=== PATIENT | female | born 1985 | race American Indian/Alaskan Native ===

== ENCOUNTER 2017-10-09 20:05 | Inpatient (IN) | payer MEDICAID ==
[2017-10-09] MEDS ORDERED: BRETHINE SUB-Q PRN (20:33)
[2017-10-09] MEDS ORDERED: MINERAL OIL PO PRN (20:33)
[2017-10-09] MEDS ORDERED: BRETHINE IVP PRN (20:33)
[2017-10-09] MEDS ORDERED: XYLOCAINE 2% INFILTRATI ONE (20:33)
[2017-10-09] MEDS ORDERED: STADOL IV PRN (20:33)
[2017-10-09] MEDS ORDERED: ePHEDrine SULFATE IV PRN (20:33)
[2017-10-09] MEDS ORDERED: SUBLIMAZE IV PRN (20:33)
[2017-10-09] MEDS ORDERED: CERVIDIL VG ONE (20:33)
[2017-10-09] MEDS ORDERED: PITOCin/NS 20 UNIT/1000ML DRIP 20 UNITS/1,000 ML BAG IV SCH (21:00)
[2017-10-09 23:03] LABS: Hematocrit 32.1 % (30.3-42.9); Hemoglobin 11.1 gm/dl (10.1-14.3); Mean Corpuscular HGB Conc 34 % (30-34); Mean Corpuscular Hemoglobin 30 pg (28-32); Mean Corpuscular Volume 87 fl (79-97); Platelet Count 186 K/mm3 (140-440); Red Blood Count 3.69 M/mm3 (3.65-5.03); Red Cell Distribution Width 15.5 % (13.2-15.2)
[2017-10-10] MEDS ORDERED: PITOCin/NS 30 UNIT/500ML 30 UNITS/500 ML BAG IV SCH (07:00)
--- NOTE | 2017-10-10 08:53 | History and Physical Report ---
History of Present Illness Date of examination: 10/10/17 Date of admission: 10/09/17 20:05 Chief complaint: scheduled induction of labor History of present illness: Pt is a 32 year old female HAMZAH 10/01/17 at 41w2d who presents for induction of labor secondary to postdates. She reports rare contractions and denies vaginal bleeding or leakage of fluid. She has had care at [facility] since 16 wks complicated by obesity, late entry to care , Sickle Cell Trait, Abnormal quad screen with normal NIPT, Elevated one hour diabetes screen but normal three hour glucose tolerance test, genital herpes without lesion or prodrome, and cystitis treated with Macrobid. She is GBS negative. Overnight, the patient received one dose of cervidil. Past History Past Medical History: hematologic disorders (Sickle Cell Trait ), other (Morbid Obesity ) Past Surgical History: no surgical history [employer] History: herpes Family/Genetic History: none Social history: no significant social history - Obstetrical History Expected Date of Delivery: 10/01/17 Actual Gestation: 41 Week(s) 2 Day(s) : 4 Para: 2 Hx # Term Pregnancies: 2 Number of Pregnancies: 0 Spontaneous Abortions: 1 Induced : 0 Number of Living Children: 2 Medications and Allergies Allergies Allergy/AdvReac Type Severity Reaction Status Date / Time No Known Allergies Allergy Verified 10/10/17 09:01 Active Meds: Active Medications Butorphanol Tartrate (Stadol) 2 mg IV Q2H PRN PRN Reason: Pain , Severe (7-10) Ephedrine Sulfate (Ephedrine Sulfate) 10 mg IV Q2M PRN PRN Reason: Hypotension Fentanyl (Sublimaze) 100 mcg IV Q2H PRN PRN Reason: Labor Pain Lactated Ringer's (Lactated Ringers) 1,000 mls @ 125 mls/hr IV DIRECT LUIS A Oxytocin/Sodium Chloride (Pitocin/Ns 20 Unit/1000ml Drip) 20 units in 1,000 mls @ 125 mls/hr IV DIRECT LUIS A Oxytocin/Sodium Chloride (Pitocin/Ns 30 Unit/500ml) 30 units in 500 mls @ 4 mls /hr IV TITR LUIS A; Protocol Mineral Oil (Mineral Oil) 30 ml PO QHS PRN PRN Reason: Constipation Terbutaline Sulfate (Brethine) 0.25 mg SUB-Q ONCE PRN PRN Reason: Hyperstimulation/Hypertonicity Terbutaline Sulfate (Brethine) 0.25 mg IVP ONCE PRN PRN Reason: Hyperstimulation/Hypertonicity Review of Systems All systems: negative - Vital Signs Vital signs: Vital Signs Pulse BP 89 117/69 10/09/17 20:31 10/09/17 20:31 Temp Pulse Resp BP Pulse Ox 97.9 F 96 H 18 107/57 97 10/09/17 21:33 10/10/17 08:49 10/09/17 21:33 10/10/17 08:49 10/10/17 07:50 - Physical Exam Breasts: Positive: deferred Cardiovascular: Regular rate Lungs: Positive: Clear to auscultation Abdomen: Positive: soft (obese, gravid ) Genitourinary (Female): Positive: normal external genitalia Uterus: Positive: enlarged (gravid ) Extremities: Positive: normal - Obstetrical FHR: auscultation normal Uterine Contraction Monitor Mode: External Cervical Dilatation: 0 Cervical Effacement Percentage: 20 station: -3 Uterine Contraction Pattern: Absent Uterine Tone Measurement Phase: Resting Results Result Diagrams: 10/09/17 20:39 Abnormal lab results 10/09/17 Range/Units 20:39 RDW 15.5 H (13.2-15.2) % All other labs normal. Assessment and Plan A: IUP at 41w2d Induction of labor for postdates, unfavorable cervix s/p 1 dose of cervidil Glucose Intolerance Abnormal Quad screen with normal NIPT Morbid Obesity Genital Herpes with no lesion or prodrome GBS negative Sickle Cell Trait P: Admit to labor and delivery Continue induction of labor Closely monitor maternal and status
[2017-10-10] MEDS: CYTOTEC VG SCH ×2 (11:20→15:20)
[2017-10-10] MEDS ORDERED: CYTOTEC ONE (15:28)
[2017-10-10] MEDS: LACTATED RINGERS 1,000 ML IV SCH (21:41)
[2017-10-11] MEDS: LACTATED RINGERS 1,000 ML IV SCH ×3 (05:56→14:35)
[2017-10-11] MEDS ORDERED: ePHEDrine SULFATE IV PRN (13:01)
[2017-10-11] MEDS ORDERED: NARCAN 2 MG/2 ML IV PRN (13:01)
--- NOTE | 2017-10-11 13:01 | Anesthesia Consultation ---
Anesthesia Consult and Med Hx Date of service: 10/11/17 - Airway Anesthetic Teeth Evaluation: Good ROM Head & Neck: Adequate Mental/Hyoid Distance: Adequate Mallampati Class: Class III Intubation Access Assessment: Possibly Difficult - Pre-Operative Health Status ASA Pre-Surgery Classification: ASA3 Proposed Anesthetic Plan: Epidural, Spinal - Pulmonary Hx Asthma: No COPD: No Hx Pneumonia: No - Cardiovascular System Hx Hypertension: No - Central Nervous System Hx Seizures: No Hx Psychiatric Problems: No - Endocrine Hx Renal Disease: No Hx End Stage Renal Disease: No Hx Hypothyroidism: No Hx Hyperthyroidism: No - Hematic Hx Anemia: No Hx Sickle Cell Disease: No - Other Systems Hx Alcohol Use: No Hx Obesity: Yes (BMI 43.3)
[2017-10-11] MEDS: fentaNYL-BUPIV 2 MCG/ML-0.125% 200 MCG/100 ML BAG EPIDURAL SCH ×3 (14:44→17:09)
[2017-10-11] MEDS ORDERED: XYLOCAINE MPF 2% ONE ×2 (16:56→17:02)
[2017-10-11] MEDS ORDERED: XYLOCAINE MPF 2% INFILTRATI ONE (17:22)
--- NOTE | 2017-10-11 17:26 | Event Note ---
Date: 10/11/17 Patient complaining of pain with contractions about 2 hours post epidural placement. 5cc of lidocaine 2% given through epidural at approx 15:30 however at 1700 pt still complaining of pain. epidural catheter was withdrawn 3cm and additional 10cc of lidocaine was bolused through epidural. Pt stated that pain was slightly better after repositioning and further bolus.
[2017-10-11] MEDS ORDERED: METHERGINE IM ONE ×2 (17:37→18:02)
--- NOTE | 2017-10-11 17:56 | Procedure Note ---
OB Delivery Note - Delivery Date of Delivery: 10/11/17 Surgeon: SANDY FRANCIS Estimated blood loss: 500cc - Vaginal Delivery presentation: vertex Delivery position: OA Intrapartum events: none Delivery induction: cervidil Delivery augmentation: rupture of membranes Delivery monitor: internal FHT, internal uterine Route of delivery: Delivery placenta: spontaneous Delivery cord: nuchal cord Episiotomy: none Delivery laceration: none Anesthesia: epidural Delivery comments: Patient was noted to be c/c/+1 and commenced to pushing a viable male at 1730. Weight was 9 pounds 4 ounces. Apgars noted to be 8 and 9 . Prior to delivery after of head reduced a loose nuchal cord. The baby delivered shoulders with Gianfranco. The cord was clamped and cut and layed on mom chest. suctioning of nasophayrnx and oropharynx. Baby handed off to awaiting peds staff. EBL 500 cc. Patient delivered an intact placenta with three vessel cord. Patient was noted to have some bleeding and given Methergine 0.2mg IM x1. Patient tolerated procedure well. - A at 1 minute: 8 at 5 minutes: 9 Gender: Male
[2017-10-11] MEDS ORDERED: ZOFRAN IV PRN (18:00)
[2017-10-11] MEDS ORDERED: SODIUM CHLORIDE FLUSH SYRINGE 10 ML IV SCH (18:00)
[2017-10-11] MEDS ORDERED: TORADOL IV PRN (18:00)
[2017-10-11] MEDS ORDERED: BENADRYL PO PRN (18:00)
[2017-10-11] MEDS ORDERED: PERCOCET 5/325 PO PRN (18:00)
[2017-10-11] MEDS ORDERED: DULCOLAX PR PRN (18:00)
[2017-10-11] MEDS ORDERED: NORCO 5/325 PO PRN (18:00)
[2017-10-11] MEDS ORDERED: PITOCin/NS 20 UNIT/1000ML DRIP 20 UNITS/1,000 ML BAG IV SCH (18:00)
[2017-10-11] MEDS ORDERED: MILK OF MAGNESIA PO PRN (18:00)
[2017-10-11] MEDS ORDERED: PHENERGAN PO PRN (18:00)
[2017-10-11] MEDS ORDERED: TUCKS PAD TP PRN (18:00)
[2017-10-11] MEDS ORDERED: PHENERGAN PR PRN (18:00)
[2017-10-11] MEDS ORDERED: TYLENOL PO PRN (18:00)
[2017-10-11] MEDS ORDERED: LANSINOH TP PRN (18:00)
[2017-10-11] MEDS: MOTRIN PO SCH (21:27)
[2017-10-11] MEDS: COLACE PO SCH (21:27)
[2017-10-12] MEDS: SENOKOT S PO SCH ×2 (04:30→21:05)
[2017-10-12] MEDS: MOTRIN PO SCH ×3 (05:51→18:08)
[2017-10-12] MEDS ORDERED: BOOSTRIX IM ONE (06:00)
[2017-10-12 06:30] LABS: Hematocrit 33.1 % (30.3-42.9); Hemoglobin 11.5 gm/dl (10.1-14.3)
--- NOTE | 2017-10-12 08:31 | Progress Note ---
Assessment and Plan A/P PPD#1 s/p VSS doing well bleeding decreased unsure of control. d/c home tomorrow Subjective - Subjective Date of service: 10/12/17 Principal diagnosis: s/p Patient reports: appetite normal, voiding normally, pain well controlled, flatus , ambulating normally : doing well Objective - Vital Signs Latest vital signs: Vital Signs Temp Pulse Resp BP BP Pulse Ox 10/12/17 05:51 18 10/12/17 04:00 98.6 F 81 18 109/68 10/12/17 00:00 98.6 F 56 L 16 103/68 10/11/17 21:27 18 10/11/17 20:40 98.6 F 83 16 114/52 10/11/17 20:25 98.0 F 89 20 99 10/11/17 20:24 94 H 136/72 10/11/17 18:54 84 119/56 10/11/17 18:51 88 100 10/11/17 18:46 97 H 98 10/11/17 18:43 91 H 0 L 10/11/17 18:41 85 0 L 10/11/17 18:39 90 124/64 18 18:38 93 H 87 10/11/17 18:35 86 100 10/11/17 18:30 89 68 L 10/11/17 18:24 88 125/59 18 18:23 87 100 10/11/17 18:18 93 H 91 18 18:16 62 L 18 18:09 117/81 10/11/17 17:56 92 H 97 10/11/17 17:51 95 H 88 18 17:30 100 H 111/82 18 17:27 106 H 100 18 17:22 91 H 100 18 17:17 89 97 18 17:00 89 127/77 100 18 16:55 88 100 18 16:54 96 H 79 L 18 16:33 95 H 98 18 16:30 95 H 107/60 10/11/17 16:29 54 L 76 L 18 16:28 92 H 98 10/11/17 16:23 91 H 98 05/16/18 16:18 78 100 05/16/18 16:13 83 98 05/16/18 16:08 84 100 05/16/18 16:06 91 H 90 05/16/18 16:03 85 98 05/16/18 15:59 85 132/78 05/16/18 15:58 79 99 05/16/18 15:53 87 100 05/16/18 15:48 80 100 05/16/18 15:43 88 97 05/16/18 15:40 88 94 05/16/18 15:38 87 98 05/16/18 15:36 18 05/16/18 15:33 91 H 86 05/16/18 15:29 85 122/62 05/16/18 15:28 83 100 05/16/18 15:26 55 L 82 L 05/16/18 15:23 91 H 97 05/16/18 15:19 47 L 69 L 05/16/18 15:18 80 100 05/16/18 15:13 83 100 05/16/18 15:08 92 H 100 05/16/18 15:03 87 100 05/16/18 14:58 93 H 100 05/16/18 14:57 80 128/69 05/16/18 14:53 96 H 96 05/16/18 14:50 91 H 117/78 05/16/18 14:48 76 122/66 98 05/16/18 14:47 88 135/78 05/16/18 14:45 78 125/62 05/16/18 14:43 89 142/76 97 05/16/18 14:40 90 116/74 05/16/18 14:38 77 118/60 97 05/16/18 14:37 76 120/63 05/16/18 14:35 90 141/75 05/16/18 14:33 82 98 05/16/18 14:32 82 131/76 05/16/18 14:30 85 128/77 05/16/18 14:28 89 123/75 98 05/16/18 14:26 78 124/67 05/16/18 14:24 73 123/72 05/16/18 14:23 82 116/69 98 05/16/18 14:21 78 123/61 85 05/16/18 14:18 74 99 05/16/18 14:16 83 130/77 05/16/18 14:15 75 118/67 05/16/18 14:13 81 126/79 95 05/16/18 14:11 78 122/69 05/16/18 14:08 82 136/64 100 05/16/18 14:07 71 89 05/16/18 14:05 76 132/77 05/16/18 14:03 84 137/69 100 05/16/18 14:00 75 127/84 05/16/18 13:58 82 125/76 99 05/16/18 13:56 89 125/75 05/16/18 13:54 85 125/73 05/16/18 13:53 78 94 05/16/18 13:52 85 120/57 05/16/18 13:50 90 107/55 05/16/18 13:48 78 103/55 97 05/16/18 13:46 81 117/64 05/16/18 13:44 82 108/65 05/16/18 13:43 82 106/56 99 05/16/18 13:41 83 113/65 05/16/18 13:38 83 108/55 99 05/16/18 13:36 87 114/58 05/16/18 13:34 78 122/63 05/16/18 13:33 82 99 05/16/18 13:32 82 126/68 05/16/18 13:30 88 126/68 05/16/18 13:29 89 122/58 05/16/18 13:28 90 99 05/16/18 13:27 88 114/69 05/16/18 13:24 81 117/61 05/16/18 13:23 90 118/58 84 05/16/18 13:19 89 141/83 81 L 05/16/18 13:18 82 100 05/16/18 13:16 84 135/84 05/16/18 13:15 90 135/79 05/16/18 13:13 81 100 05/16/18 13:08 84 100 05/16/18 13:03 91 H 96 05/16/18 12:58 86 98 05/16/18 12:55 93 H 91 05/16/18 12:53 87 98 05/16/18 12:48 88 99 05/16/18 12:44 90 129/76 18 12:43 90 99 18 12:38 95 H 98 18 12:33 102 H 98 18 12:28 88 98 18 12:23 92 H 97 18 12:18 86 97 18 12:13 87 98 18 12:08 82 98 18 12:05 88 89 18 12:03 86 98 18 11:58 100 H 96 18 11:53 87 99 18 11:48 82 97 18 11:44 93 H 126/76 18 11:43 98 H 80 L 18 11:38 85 98 18 11:33 88 98 18 11:28 90 98 18 11:23 83 97 18 11:18 88 98 18 11:13 92 H 98 18 11:08 84 97 18 11:03 97 H 96 18 10:58 92 H 96 18 10:53 91 H 97 18 10:48 86 97 18 10:45 88 109/63 18 10:43 86 97 18 10:38 87 98 18 10:33 89 98 18 10:28 86 97 18 10:23 85 97 18 10:18 84 97 18 10:15 89 108/58 18 10:12 98.2 F 89 20 108/58 97 Intake and Output 18 17/18 17/18 23:59 07:59 15:59 Intake Total 860 Output Total 2700 Balance -1840 Intake: Oral 560 Intake, Free Water 300 Output: Urine 2700 Indwelling Catheter 1200 Void 1500 Other: Total, Intake Amount 200 Total, Output Amount 800 # Voids Void 1 Estimated Blood Loss 500 - Exam Breasts: Present: normal Cardiovascular: Present: Regular rate, Normal S1 Lungs: Present: Clear to auscultation, Normal air movement Abdomen: Present: normal appearance, soft, normal bowel sounds. Absent: distention, tenderness, guarding Vulva: both: normal Uterus: Present: normal, firm, fundal height below umbilicus. Absent: bogginess , tenderness Extremities: Present: normal Deep Tendon Reflex Grade: Normal +2 Incision: Present: normal, dry, intact
--- NOTE | 2017-10-12 08:32 | Discharge Summary ---
Providers - Providers Date of Admission: 10/09/17 20:05 Date of discharge: 10/12/17 Attending physician: ALEK WESTBROOK Primary care physician: ALEK WESTBROOK Hospitalization Reason for admission: active labor Delivery: Episiotomy: none Laceration: none Other procedures: none complications: none Discharge diagnosis: IUP at term delivered baby: male Condition at discharge: Good Disposition: DC-01 TO HOME OR SELFCARE Plan - Discharge Medications Prescriptions: Ferrous Sulfate 325 mg PO BID #30 tablet. Ibuprofen [Motrin] 600 mg PO Q8H PRN #30 tablet PRN Reason: Pain oxyCODONE /ACETAMINOPHEN [Percocet 5/325] 1 tab PO Q6HR PRN #30 tablet PRN Reason: Pain - Provider Discharge Summary Activity: routine, no sex for 6 weeks, no strenuous exercise Diet: routine Instructions: routine Additional instructions: [] Smoking cessation referral if applicable(refer to patient education folder for contact #) [] Refer to [facility] Booklet Call your doctor immediately for: * Fever > 100.5 * Heavy vaginal bleeding ( >1 pad per hour) * Severe persistent headache * Shortness of breath * Reddened, hot, painful area to leg or breast * Drainage or odor from incision. * Keep incision clean and dry at all times and follow doctor's instructions regarding bathing/showering - Follow up plan Follow up: ALEK WESTBROOK MD [Primary Care Provider] - 11/08/17
[2017-10-12] MEDS ORDERED: PRENATAL VITAMIN PO SCH (10:00)
[2017-10-12] MEDS ORDERED: M-M-R II VACCINE SUB-Q ONE (19:00)
[2017-10-12] MEDS: COLACE PO SCH (21:04)
[2017-10-13] MEDS: MOTRIN PO SCH (00:13)
[2017-10-13 09:14] VITALS: BP 103/54
== END 2017-10-13 11:00 | disposition home or self-care (01) | DRG 774 ==
LOC: LD 20:05 → OB 10-11 21:15
PROVIDERS: ADMIT Obstetrics & Gynecology; ATTEND Obstetrics & Gynecology
PROC: 10E0XZZ Delivery of Products of Conception, External Approach (ICD-10-PCS; principal; 2017-10-11)
PROC: 3E0P7VZ Introduction of Hormone into Female Reproductive, Via Natural or Artificial Opening (ICD-10-PCS; 2017-10-11)
PROC: 3E0R3BZ Introduction of Anesthetic Agent into Spinal Canal, Percutaneous Approach (ICD-10-PCS; 2017-10-11)
PROC: 00HU33Z Insertion of Infusion Device into Spinal Canal, Percutaneous Approach (ICD-10-PCS; 2017-10-11)
PROC: 3E0234Z Introduction of Serum, Toxoid and Vaccine into Muscle, Percutaneous Approach (ICD-10-PCS; 2017-10-12)
DX: O99.214 Obesity complicating childbirth (principal); O98.32 Other infections with a predominantly sexual mode of transmission complicating childbirth; O48.0 Post-term pregnancy; E66.01 Morbid (severe) obesity due to excess calories; O99.02 Anemia complicating childbirth; A60.00 Herpesviral infection of urogenital system, unspecified; D57.3 Sickle-cell trait; O69.81X0 Labor and delivery complicated by cord around neck, without compression, not applicable or unspecified; Z68.41 Body mass index [BMI] 40.0-44.9, adult; Z3A.41 41 weeks gestation of pregnancy; Z37.0 Single live birth; Z23 Encounter for immunization; O72.1 Other immediate postpartum hemorrhage
CPT/HCPCS: 36415; 59200; 85014; 85018; 85027; 86592; 86850; 86900; 86901; A6250; J0595; J2210; J2590; J7120